=== PATIENT | female | born 1985 | race Hispanic/Latino ===

== ENCOUNTER → 2016-05-25 | Outpatient (REF) | payer OTHER | LOC: M LAB REF 16:40 | PROVIDERS: ATTEND Physician Assistant Medical | DX: N39.0 Urinary tract infection, site not specified (principal) ==

== ENCOUNTER → 2016-09-19 | Outpatient (CLI) | payer OTHER ==
--- NOTE | 2016-09-20 07:18 | REP ---
Clinical: Left lower quadrant pain and history of left ovarian cyst. Comparison: 02/06/2016. Technique: Transabdominal pelvic ultrasound followed by transvaginal examination for better evaluation of the endometrium and adnexa with color Doppler evaluation of the ovaries. Findings: Bladder is unremarkable and measures 9.8 x 8.2 x 8.9 cm . Normal anteverted uterus measures 8.1 x 3.2 x 4.3 cm. The endometrial complex measures 6.9 mm thickness. No discrete uterine or endometrial abnormalities are appreciated. Right ovary measures 6.2 x 4.6 x 4.9 cm and includes 5.4 x 4.0 x 4.5 cm cyst ; R I = 0.54 . Left ovary measures 3.1 x 2.3 x 2.1 cm with 1.9 cm dominant follicle ; R I = 0.54 . Trace pelvic free fluid is nonspecific and likely physiologic. . Impression: 1. Heterogeneous anteverted uterus without obvious abnormality. 2. 5.4 cm simple appearing right ovarian cyst and 1.9 cm left ovarian dominant follicle. Consider follow-up evaluation in 4-6 weeks to evaluate for resolution. Signed by Jake Carmen MD 09/20/2016 07:10 A
== END ==
LOC: M RAD 13:22
PROVIDERS: ATTEND Family Medicine
DX: R10.9 Unspecified abdominal pain (principal)